=== PATIENT | male | born 1990 | race Caucasian/White ===

== ENCOUNTER 2017-02-25 22:53 | Emergency (ER) | payer OTHER ==
[~2017-02-25] VITALS: Ht 165.1 cm; Wt 61.6 kg
[~2017-02-25 22:53] MED LIST: FLEXERIL10 MG PO; LORTAB 5-500 T1 EACH PO; MOTRIN600 MG PO
[2017-02-26 00:21] VITALS: BP 127/71
== END 2017-02-26 00:21 | disposition home or self-care (01) ==
LOC: EME 22:53
DX: M79.89 Other specified soft tissue disorders (principal)
CPT/HCPCS: 73130; 99281; 99283